=== PATIENT | female | born 1980 | race Caucasian/White ===

== ENCOUNTER 2020-11-19 07:50 | Outpatient (CLI) | payer BC, SELFPAY ==
--- NOTE | ~2020-11-19 | MR_ITS ---
EXAMINATION: MR ankle LT wo con DATE: 11/19/2020 08:45 INDICATION: Left ankle sprain TECHNIQUE: Magnetic resonance imaging (MRI) of the left ankle was performed without intravenous contr ast. Sequences included sagittal, coronal, and axial proton-density weighted fast spin echo without a nd with fat saturation. COMPARISON: None. FINDINGS: Medial ankle ligaments: Deep and superficial deltoid ligaments as well as the spring ligament are normal. Lateral ankle ligaments: The anterior and posterior inferior tibiofibular ligaments are normal. High-grade partial if not comp lete tear of the anterior talofibular ligament. The calcaneofibular and posterior talofibular ligamen ts are normal. Tendons: Achilles tendon is normal. The peroneus longus tendon is normal. Mild tendinopathy without discrete t ear of the peroneus brevis tendon. The tibialis anterior and extensor hallucis longus and extensor di gitorum longus tendons are normal. The tibialis posterior, flexor digitorum longus and flexor halluci s longus tendons are normal. Plantar fascia: Latter aponeurosis is normal. Bones/other: Mild osteoarthritis at the left ankle with regions of high-grade chondromalacia with underlying marro w edema at both the medial and lateral aspects of the talar dome. Remaining joint spaces in the mid a nd hindfoot are normal. Fluid: Moderate-sized ankle joint effusion with surrounding soft tissue edema. IMPRESSION: 1. High-grade partial if not complete tear of the anterior talofibular ligament. 2. Moderate-sized left ankle joint effusion. 3. 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 Reviewed, dictated and finalized at location A. IMPRESSION: 1. High-grade partial if not complete tear of the anterior talofibular ligament . 2. Moderate-sized left ankle joint effusion. 3. 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
== END 2020-11-19 07:51 | disposition home or self-care (01) ==
LOC: ANHIMG 07:58
DX: S93.492D Sprain of other ligament of left ankle, subsequent encounter (principal); X58.XXXD Exposure to other specified factors, subsequent encounter; M19.072 Primary osteoarthritis, left ankle and foot; M25.472 Effusion, left ankle
CPT/HCPCS: 73721

== ENCOUNTER 2023-09-20 08:37 | Emergency (ER) | payer BC, SELFPAY ==
--- NOTE | 2023-09-20 08:43 | ED.GENADULT ---
HPI - General Adult General Chief complaint: Eye Problems Stated complaint: swollen eye, rash under arm Time Seen by Provider: 09/20/23 08:43 Source: patient Mode of arrival: ambulatory Limitations: no limitations History of Present Illness HPI narrative: 42-year-old female patient presents to the [facility] the [facility] with complaints of left eyelid swelling, redness and drainage from the eye. Patient states she notice some swelling to the eyelid on Thursday and thought it was just a stye so she has been using warm compresses on the area. Patient states that got significantly worse and has had copious amounts of white drainage. Denies any sensitivity to the light. Denies any itchiness or pain to the eye. Patient states she does not wear contacts glasses only. Patient also states that she went to her doctor on Thursday and received an antifungal cream for rash under bilateral arms. Patient states that she feels that the rash is getting worse and is very painful and has been spreading. Denies any fevers, body aches or chills. Patient states she has been waking up in the morning and her shirts are soaked and drainage what appears to be a yellowish color. Related Data Home Medications Medication Instructions Recorded Confirmed clotrimazole-betamethasone 1 1 applic topical BID 09/20/23 09/20/23 %-0.05 % topical cream dextromethorphan IR 45 1 tablet PO BID 09/20/23 09/20/23 mg-bupropion ER 105 mg biphasic tablet (Auvelity) levonorgestrel 21 mcg/24 hr (up to See Rx Instructions .Route .COMPLEX 09/20/23 09/20/23 8 years) 52 mg intrauterine device (Mirena) metoprolol succinate 25 mg 25 mg PO DAILY 09/20/23 09/20/23 tablet,extended release 24 hr semaglutide (weight loss) 0.5 0.5 mg subcut WEEKLY 09/20/23 09/20/23 mg/0.5 mL subcutaneous pen injector (Wegovy) sertraline 100 mg tablet 150 mg PO DAILY 09/20/23 09/20/23 Allergies Allergy/AdvReac Type Severity Reaction Status Date / Time No Known Allergies Allergy Verified 09/20/23 08:49 Review of Systems Review of Systems: CONSTITUTIONAL: Denies fever, chills, or sweats. EYES: Denies visual changes, redness, or discharge. ENT: Denies rhinorrhea, congestion, sore throat, or otalgia. CARDIOVASCULAR: Denies chest pain, palpitations, or edema. RESPIRATORY: Denies cough or dyspnea. GASTROINTESTINAL: Denies abdominal pain, nausea, vomiting, or diarrhea. GENITOURINARY: Denies dysuria or hematuria. SKIN: Denies rash or itching. MUSCULOSKELETAL: Denies back pain, joint pain, or myalgia. NEUROLOGIC: Denies headache, numbness, or weakness. PSYCHIATRIC: Denies anxiety or depression. [facility] Past Medical History Medical History (Updated 09/20/23 @ 09:16 by CRISTOPHER Hernandez) No significant past medical history Comments At the time of my signature I agree with nursing past medical history, surgical, social, and family history. There is no relevant family history pertinent to the presenting complaint. Exam Narrative: GENERAL: Well-appearing, well-nourished, and in no acute distress. HEAD: Normocephalic, atraumatic. EYES: PERRLA and EOM intact without limitation or complaint of pain, left upper lid soft tissue swelling with erythema and slight warmth and tenderness noted, no obvious deformity. No crusting or swelling. tearing and white draining noted to the left eye. No photophobia. No nystagmus No FB or lesion on lid eversion. Corneas grossly clear, no obvious FB or hyphens/hypopyon. erythemic injection to sclera. Lids and lashes with dry drainage noted. ENT: Nares clear, no rhinorrhea or epistaxis. Mucous membranes moist. NECK: Supple. No lymphadenopathy CHEST: Clear to auscultation. No respiratory distress. HEART: Regular rate and rhythm. No murmur heard. Normal peripheral pulses. ABDOMEN: Soft, nontender, nondistended, normal active bowel sounds. EXTREMITIES: Normal range of motion. No edema. SKIN: Warm, dry, patient has a large erythemic rash with peeling
[2023-09-20 08:50] VITALS: BP 125/79; PULSE 55; RESP 18; TEMP 36.6; O2SAT 97
[2023-09-20 08:51] VITALS: BP 125/79; PULSE 55; RESP 18; TEMP 36.6; O2SAT 97
== END 2023-09-20 09:16 | disposition home or self-care (01) ==
PROVIDERS: Emergency Provider Nurse Practitioner Family
DX: H10.32 Unspecified acute conjunctivitis, left eye (principal); L03.111 Cellulitis of right axilla; Z86.16 Personal history of COVID-19; F41.9 Anxiety disorder, unspecified
CPT/HCPCS: 99213; G0463